=== PATIENT | male | born 1980 | race African-American/Black ===

== ENCOUNTER 2021-01-23 06:29 | Emergency (ER) | payer OTHER ==
[~2021-01-23] VITALS: Ht 170.2 cm; Wt 117.9 kg
[2021-01-23 07:14] VITALS: BP 139/74
[2021-01-23] MEDS ORDERED: HYDROCODON-ACE1 EAC7 PO (08:25)
[2021-01-23] MEDS ORDERED: FLEXERIL PO (08:25)
== END 2021-01-23 08:33 | disposition home or self-care (01) ==
LOC: M.ERS 06:29
DX: S30.0XXA Contusion of lower back and pelvis, initial encounter (principal); E11.9 Type 2 diabetes mellitus without complications; Z90.89 Acquired absence of other organs; W01.0XXA Fall on same level from slipping, tripping and stumbling without subsequent striking against object, initial encounter; Y93.89 Activity, other specified; Y92.89 Other specified places as the place of occurrence of the external cause; Y99.8 Other external cause status

== ENCOUNTER 2021-03-22 14:53 | Emergency (ER) | payer OTHER ==
[~2021-03-22] VITALS: Ht 175.3 cm; Wt 117.9 kg
[~2021-03-22 14:53] MED LIST: FLEXERIL PO; HYDROCODON-ACE1 EAC7 PO
[2021-03-22] MEDS ORDERED: VISTARIL 25 MG25 M1 PO (15:22)
[2021-03-22 15:32] VITALS: BP 115/70
== END 2021-03-22 15:33 | disposition home or self-care (01) ==
LOC: M.ERS 14:53
DX: L29.9 Pruritus, unspecified (principal); E11.9 Type 2 diabetes mellitus without complications; Z90.89 Acquired absence of other organs; Z96.22 Myringotomy tube(s) status; Z98.890 Other specified postprocedural states